=== PATIENT | female | born 1965 | race Caucasian/White ===

== ENCOUNTER 2023-05-08 20:03 | Inpatient (IN) | payer BC ==
[~2023-05-08] VITALS: Ht 160 cm; Wt 53.1 kg
[2023-05-08] MEDS: NICARDIPINE 25MG INJ IV ONE (20:43)
[2023-05-08 20:58] LABS: BASOPHILS # (AUTO) 0.05 K/uL (0.00-0.20); BASOPHILS % (AUTO) 0.5 % (0.0-5.0); EOSINOPHILS # (AUTO) 0.18 K/uL (0.00-0.70); EOSINOPHILS % (AUTO) 1.9 % (0.0-8.0); HEMATOCRIT 46.6 % (36-48); IMMATURE GRANULOCYTE ABSOLUTE 0.03 K/uL (0-1); LYMPHOCYTES # (AUTO) 1.5 K/uL (1.0-4.8); MEAN CORPUSCULAR HEMOGLOBIN 33.1 pg (27.0-33.0); MEAN CORPUSCULAR HGB CONC 35.2 g/dL (32.0-36.0); MONOCYTES # (AUTO) 0.7 K/uL (0.1-1.0); MONOCYTES % (AUTO) 7.5 % (3.0-13.0); NEUTROPHILS # (AUTO) 7.1 K/uL (1.8-7.7); NEUTROPHILS % (AUTO) 73.8 % (40.0-77.0); PLATELET COUNT (AUTO) 233 K/uL (130-400); RED BLOOD CELL COUNT(AUTO) 4.96 MIL/uL (4.00-5.50); RED CELL DISTRIBUTION WIDTH 11.8 % (11.0-15.5); WHITE BLOOD COUNT (AUTO) 9.6 K/uL (4.8-10.8)
[2023-05-08] MEDS ORDERED: NICARDIPINE 25MG INJ 25 MG in 0.9% NACL 250ML 240 ML IV SCH (21:00)
[2023-05-08 21:13] LABS: MAGNESIUM 1.8 mg/dL (1.80-2.40)
[2023-05-08 23:14] LABS: CREATININE 0.6 mg/dL (0.5-1.5); POTASSIUM 3.6 mmol/L (3.5-5.1)
[2023-05-09] VITALS (74 sets, daily range): BP systolic 116–195; BP diastolic 55–93; PULSE 53–100; RESP 12–52; O2SAT 93–98
[2023-05-09] MEDS ORDERED: POTASSIUM CHLORIDE 20MEQ/100ML 100 ML IV PRN (02:00)
[2023-05-09] MEDS ORDERED: ACETAMINOPHEN 325 MG TAB PO PRN (02:00)
[2023-05-09] MEDS: ACETAMINOPHEN 500 MG TABLET PO ONE (02:15)
[2023-05-09] MEDS: 0.9%NACL 1000ML 1,000 ML IV SCH (02:27)
[2023-05-09] MEDS: POTASSIUM CHLORIDE 10% ELIXIR 20 MEQ/15 ML UDCUP PO PRN (02:45)
[2023-05-09] MEDS: MAGNESIUM 2GM PREMIX 50ML 50 ML IV PRN (02:45)
[2023-05-09] MEDS: ONDANSETRON 4MG INJ IV PRN (05:15)
[2023-05-09] MEDS ORDERED: PHARMACY COMMUNICATION MISC PRN ×2 (05:30→06:30)
[2023-05-09] MEDS ORDERED: COMPOUND IV REFRIGERATED 1 EACH IVSOLN MISC PRN (06:30)
[2023-05-09 06:42] LABS: BASOPHILS # (AUTO) 0.04 K/uL (0.00-0.20); BASOPHILS % (AUTO) 0.6 % (0.0-5.0); EOSINOPHILS # (AUTO) 0.21 K/uL (0.00-0.70); EOSINOPHILS % (AUTO) 2.9 % (0.0-8.0); HEMATOCRIT 45.2 % (36-48); IMMATURE GRANULOCYTE ABSOLUTE 0.03 K/uL (0-1); LYMPHOCYTES # (AUTO) 1.6 K/uL (1.0-4.8); LYMPHOCYTES % (AUTO) 21.5 % (21.0-51.0); MEAN CORPUSCULAR HEMOGLOBIN 32.9 pg (27.0-33.0); MEAN CORPUSCULAR HGB CONC 34.7 g/dL (32.0-36.0); MEAN CORPUSCULAR VOLUME 94.8 fL (79-99); MONOCYTES # (AUTO) 0.8 K/uL (0.1-1.0); MONOCYTES % (AUTO) 10.3 % (3.0-13.0); NEUTROPHILS # (AUTO) 4.7 K/uL (1.8-7.7); NEUTROPHILS % (AUTO) 64.3 % (40.0-77.0); PLATELET COUNT (AUTO) 224 K/uL (130-400); RED BLOOD CELL COUNT(AUTO) 4.77 MIL/uL (4.00-5.50); RED CELL DISTRIBUTION WIDTH 11.9 % (11.0-15.5); WHITE BLOOD COUNT (AUTO) 7.3 K/uL (4.8-10.8)
[2023-05-09 07:07] LABS: HEMOGLOBIN A1C 5.8 % (4.0-6.0)
[2023-05-09 07:08] LABS: ALBUMIN 3.4 g/dL (3.5-5.0); BILIRUBIN,TOTAL 0.5 mg/dL (0.2-1.0); CREATININE 0.6 mg/dL (0.5-1.5); MAGNESIUM 2.2 mg/dL (1.80-2.40); POTASSIUM 3.7 mmol/L (3.5-5.1); TOTAL PROTEIN, SERUM 6.8 g/dL (6.0-8.3)
[2023-05-09] MEDS: THIAMINE HCL 100 MG, FOLIC ACID 1 MG, M.V.I. IV [ADULT] 10 ML in 0.9%NACL 1000ML 1,000 ML IV SCH (08:13)
[2023-05-09] MEDS: FAMOTIDINE 20MG TAB PO SCH (08:13)
[2023-05-09] MEDS: NICOTINE 14 MG/ 24 HR PATCH TD SCH (08:13)
[2023-05-09] MEDS: ENOXAPARIN SODIUM 30 MG/0.3 ML SQ SCH (08:14)
[2023-05-09 08:21] LABS: INR 0.94 (0.85-1.15); PROTHROMBIN TIME 10.9 SEC (9.6-11.6)
[2023-05-09 08:37] LABS: ADD UA MICROSCOPIC NO; APPEARANCE,URINE CLEAR (CLEAR); BILIRUBIN,URINE NEGATIVE (NEGATIVE); COLOR,URINE COLORLESS (YELLOW); GLUCOSE, URINE (UA) NEGATIVE (NEGATIVE); KETONES,URINE NEGATIVE (NEGATIVE); LEUKOCYTE ESTERASE ,URINE NEGATIVE Leu/uL (NEGATIVE); NITRATE,URINE NEGATIVE (NEGATIVE); OCCULT BLOOD,URINE NEGATIVE (NEGATIVE); PH,URINE 7.5 (5.0-8.0); PROTEIN,URINE NEGATIVE (NEGATIVE); UROBILINOGEN,URINE 0.2 mg/dL (0.2-1.0)
[2023-05-09 08:46] LABS: AMPHET/METH SCREEN,URINE NEGATIVE (NEGATIVE); BARBITURATE SCREEN, URINE NEGATIVE (NEGATIVE); BENZODIAZEPINES SCREEN,URINE NEGATIVE (NEGATIVE); CANNABINOID SCREEN,URINE POSITIVE (NEGATIVE); COCAINE SCREEN,URINE NEGATIVE (NEGATIVE); OPIATE SCREEN,URINE NEGATIVE (NEGATIVE); PHENCYCLIDINE SCREEN,URINE NEGATIVE (NEGATIVE)
[2023-05-09] MEDS ORDERED: IOHEXOL 350 MG/ML 100ML INFUS..BTL IV ONE (10:14)
[2023-05-09] MEDS: CARVEDILOL 6.25 MG TABLET PO SCH ×2 (10:19→20:30)
[2023-05-09] MEDS: METOPROLOL SUCCINATE 50 MG TAB.SR.24H PO ONE (10:19)
[2023-05-09] MEDS: THIAMINE HCL 100 MG/ML 2ML VIAL IVP SCH (13:35)
[2023-05-09] MEDS: FOLIC ACID 5 MG/ML VIAL IV SCH (13:35)
[2023-05-09] MEDS ORDERED: GADOTERATE MEGLUMINE 10 MMOL/20 ML VIAL IV ONE (15:42)
[2023-05-09] MEDS: HYDRALAZINE 20MG/ML VIAL IV PRN (16:15)
[2023-05-09] MEDS: ACETAMINOPHEN 325 MG TAB PO PRN (16:26)
[2023-05-09] MEDS: ASPIRIN 81MG CHEW TAB PO ONE (17:42)
[2023-05-09] MEDS: CHLORDIAZEPOXIDE HCL 25 MG CAP PO PRN (17:48)
[2023-05-09] MEDS: SIMVASTATIN 20 MG TABLET PO SCH (20:30)
[2023-05-09] MEDS: LORAZEPAM 2 MG/ML 1 ML VIAL IVP PRN (20:30)
[2023-05-10] VITALS (45 sets, daily range): BP systolic 120–187; BP diastolic 57–98; PULSE 63–97; RESP 17–58; O2SAT 95–97
[2023-05-10 04:30] LABS: HEMATOCRIT 43.1 % (36-48); MEAN CORPUSCULAR HGB CONC 34.6 g/dL (32.0-36.0); MEAN CORPUSCULAR VOLUME 95.6 fL (79-99); RED BLOOD CELL COUNT(AUTO) 4.51 MIL/uL (4.00-5.50); RED CELL DISTRIBUTION WIDTH 12.4 % (11.0-15.5); WHITE BLOOD COUNT (AUTO) 7.1 K/uL (4.8-10.8)
[2023-05-10 04:50] LABS: ALBUMIN 3.2 g/dL (3.5-5.0); BILIRUBIN,TOTAL 0.6 mg/dL (0.2-1.0); CREATININE 0.7 mg/dL (0.5-1.5); MAGNESIUM 1.9 mg/dL (1.80-2.40); POTASSIUM 3.1 mmol/L (3.5-5.1); TOTAL PROTEIN, SERUM 6.5 g/dL (6.0-8.3)
[2023-05-10] MEDS: ASPIRIN 81 MG EC TAB PO SCH (07:58)
[2023-05-10] MEDS: NIFEDIPINE ER 30 MG TAB PO SCH (07:59)
[2023-05-10] MEDS: KCL 20 MEQ ERTAB PO PRN (09:00)
[2023-05-10] MEDS ORDERED: NIFEDIPINE 10 MG CAP PO SCH (09:00)
[2023-05-10] MEDS: KCL 20 MEQ ERTAB PO ONE (17:14)
[2023-05-10] MEDS: LOSARTAN 25 MG TABLET PO SCH (20:34)
[2023-05-11 04:00] VITALS: BP 141/78; PULSE 72; RESP 20
[2023-05-11 04:00] LABS: HEMATOCRIT 44.6 % (36-48); MEAN CORPUSCULAR HEMOGLOBIN 32.9 pg (27.0-33.0); MEAN CORPUSCULAR HGB CONC 34.1 g/dL (32.0-36.0); MEAN CORPUSCULAR VOLUME 96.5 fL (79-99); RED BLOOD CELL COUNT(AUTO) 4.62 MIL/uL (4.00-5.50); RED CELL DISTRIBUTION WIDTH 12.3 % (11.0-15.5); WHITE BLOOD COUNT (AUTO) 5.9 K/uL (4.8-10.8)
[2023-05-11 04:25] LABS: ALBUMIN 3.1 g/dL (3.5-5.0); BILIRUBIN,TOTAL 0.3 mg/dL (0.2-1.0); CREATININE 0.5 mg/dL (0.5-1.5); MAGNESIUM 1.8 mg/dL (1.80-2.40); POTASSIUM 3.2 mmol/L (3.5-5.1); TOTAL PROTEIN, SERUM 6.4 g/dL (6.0-8.3)
[2023-05-11 08:00] VITALS: BP 144/75; PULSE 74; RESP 18; O2SAT 97
[2023-05-11] MEDS: HYDROCHLOROTHIAZIDE 25 MG TABLET PO SCH (09:27)
[2023-05-11] MEDS: CARVEDILOL 12.5 MG TABLET PO SCH (09:28)
[2023-05-11 12:00] VITALS: BP 154/75; PULSE 75; RESP 20
[2023-05-11] MEDS ORDERED: AEC81 PO (12:50)
[2023-05-11] MEDS ORDERED: SIMV-43 PO (12:50)
[2023-05-11] MEDS ORDERED: NIFE-39 PO (12:50)
[2023-05-11] MEDS ORDERED: TOPI25TA48 PO (13:52)
== END 2023-05-11 13:55 | disposition home or self-care (01) | DRG 305 ==
LOC: EDH 20:03 → EDHIP 05-09 01:55 → 2BH 05-09 03:36 → 4DH 05-10 12:20
PROVIDERS: ADMIT Internal Medicine; ATTEND Internal Medicine
DX: I16.1 Hypertensive emergency (principal); E87.1 Hypo-osmolality and hyponatremia; E44.1 Mild protein-calorie malnutrition; E78.5 Hyperlipidemia, unspecified; I10 Essential (primary) hypertension; F17.200 Nicotine dependence, unspecified, uncomplicated; E87.6 Hypokalemia; F41.9 Anxiety disorder, unspecified; I65.21 Occlusion and stenosis of right carotid artery; G43.909 Migraine, unspecified, not intractable, without status migrainosus; J45.909 Unspecified asthma, uncomplicated; Z79.899 Other long term (current) drug therapy; Z93.3 Colostomy status; Z88.8 Allergy status to other drugs, medicaments and biological substances; Z88.5 Allergy status to narcotic agent; Z68.20 Body mass index [BMI] 20.0-20.9, adult
CPT/HCPCS: 36415; 70450; 70496; 70498; 70553; 80048; 80053; 80061; 80305; 81003; 82948; 83036; 83735; 84443; 84484; 85025; 85027; 85610; 93005; 93306; 93880; G0378; J0360; J1650; J2060; J2405; J3411; J3475; J3490; J7030; J7050; Q9967; A9575